=== PATIENT | female | born 1995 ===

== ENCOUNTER 2023-05-11 22:02 | Emergency (ER) | payer OTHER ==
[~2023-05-11] VITALS: Ht 152.4 cm; Wt 75.0 kg
[2023-05-11 22:15] VITALS: BP 126/72; PULSE 70; RESP 18; O2SAT 98
[2023-05-12] MEDS ORDERED: LACTATED RINGER'S 1,000 ML IV ONE (00:30)
== END 2023-05-12 02:42 | disposition left against medical advice (07) ==
LOC: ER 22:02 → EDBD 22:02 → ER 23:55
DX: F10.129 Alcohol abuse with intoxication, unspecified (principal); Y90.8 Blood alcohol level of 240 mg/100 ml or more
CPT/HCPCS: 80053; 80307; 80320; 80329; 81001; 83735; 84702